=== PATIENT | male | born 1975 | race Caucasian/White ===

== ENCOUNTER 2018-05-15 00:32 | Emergency (ER) | payer BC ==
[~2018-05-15] VITALS: Ht 167.6 cm; Wt 55.0 kg
[~2018-05-15 00:32] MED LIST: TRAMADOL HCL50 MG PO
[2018-05-15 01:15] LABS: HEMATOCRIT 43.7 % (38.0-50.0); HEMOGLOBIN 15.6 G/DL (12.5-16.6); MCH 32.2 PG (29.0-34.0); MCHC 35.7 G/DL (30.0-36.0); MCV 90.1 FL (86-99); PLATELET COUNT 233 K/uL (156-360); RBC DIS.WIDTH-CV 13.1 % (11.8-14.6); RBC DIS.WIDTH-SD 43.2 % (39-53); RED BLOOD COUNT 4.85 M/uL (4.00-5.50)
[2018-05-15 01:16] LABS: APPEARANCE CLEAR ((CLEAR)); BILIRUBIN NEGATIVE; BLOOD NEGATIVE; COLOR YELLOW ((YELLOW)); GLUCOSE (STRIP) NEGATIVE; KETONES 20; LEUKOCYTES NEGATIVE; NITRITE NEGATIVE; PROTEIN (STRIP) 100; SPECIFIC GRAVITY 1.023 (1.000-1.030); UROBILINOGEN 0.2 MG/DL (0.2-1.0)
[2018-05-15 01:24] LABS: ALBUMIN 4.5 g/dL (3.2-4.8)
[2018-05-15 01:25] LABS: CHLORIDE 105 mEq/L (99-109); SODIUM 141 mEq/L (136-147)
[2018-05-15 01:27] LABS: GLUCOSE 146 mg/dL (70-99); TOTAL PROTEIN 7.6 g/dL (6.4-8.3)
[2018-05-15 01:28] LABS: BACTERIA NONE SEEN /HPF; EPITHELIAL CELLS NONE SEEN /HPF; MUCUS TRACE /LPF; RED BLOOD CELLS 40-50 /HPF (0-5); UCUL ADDED? NO; WHITE BLOOD CELLS 0-5 /HPF (0-5)
[2018-05-15 01:29] LABS: TOTAL BILIRUBIN 0.9 mg/dL (0.0-1.0)
[2018-05-15 01:30] LABS: ALKALINE PHOSPHATASE 86 IU/L (3-129)
[2018-05-15 01:31] LABS: CREATININE 1.2 mg/dL (0.6-1.3); GFR ESTIMATE (CALCULATED) > 59 mL/min/ (58.99-99999)
[2018-05-15 01:32] LABS: AST (GOT) 17 IU/L (2-34); UREA NITROGEN (BUN) 16 mg/dL (9-23)
[2018-05-15 01:33] LABS: ALT (GPT) 14 IU/L (3-49)
[2018-05-15 01:59] LABS: LIPASE 11 U/L (1.0-51.0)
[2018-05-15] MEDS ORDERED: FLOMAX0.4 MG PO (04:00)
[2018-05-15] MEDS ORDERED: ZOFRAN4 MG PO (04:00)
[2018-05-15] MEDS ORDERED: PERCOCET 5/31 TABLET PO (04:00)
[2018-05-15 04:08] VITALS: BP 130/88
== END 2018-05-15 04:09 | disposition home or self-care (01) ==
LOC: EME 00:32
PROVIDERS: Emergency Medicine
DX: N13.2 Hydronephrosis with renal and ureteral calculous obstruction (principal); J45.909 Unspecified asthma, uncomplicated; F17.200 Nicotine dependence, unspecified, uncomplicated
CPT/HCPCS: 74176; 80053; 81003; 83690; 85027; J1885